=== PATIENT | female | born 1995 | race Caucasian/White ===

== ENCOUNTER 2022-06-26 11:09 | Outpatient (CLI) | payer OTHER, SELFPAY ==
--- NOTE | ~2022-06-26 | US_ITS ---
EXAMINATION: US OB follow up DATE: 06/26/2022 11:47 INDICATION: weight and position. Third trimester. TECHNIQUE: Real-time ultrasound of the pelvis was performed. COMPARISON: None. FINDINGS: There is a single living fetus in vertex presentation. The placenta is anterior. heart rate is 134 beats per minute (bpm). The amniotic fluid index is 13.1 cm, which is normal. The following biometric data were obtained: Biparietal diameter (BPD): 8.3 cm; head circumference (HC): 30.5 cm; abdominal circumference (AC): 32 .1 cm; femur length (FL): 7.0 cm. These measurements are concordant. Estimated weight is 2675 g +/- 401 g, which correlates with the 41st percentile when 07/26/22 is used as estimated date of delivery. As single measurements, these parameters are each equal to the following estimated gestational ages: BPD: 33 weeks 3 days. HC: 34 weeks 0 days. AC: 36 weeks 0 days. FL: 35 weeks 5 days. estimated gestational age based solely on measurements from this exam is 34 weeks 6 days +/- 2 weeks 3 days. IMPRESSION: 1. Single living fetus in vertex presentation. 2. Estimated weight is 2675 g +/- 401 g, which correlates with the 41st percentile when 07/26/22 is used as estimated date of delivery. Reviewed, dictated and finalized at location A. R DESIGN ENGINEER
== END 2022-06-26 11:10 | disposition home or self-care (01) ==
LOC: ANHIMG 11:18
PROVIDERS: Visit Provider Obstetrics & Gynecology
DX: Z34.93 Encounter for supervision of normal pregnancy, unspecified, third trimester (principal); Z3A.34 34 weeks gestation of pregnancy
CPT/HCPCS: 76816

== ENCOUNTER 2022-07-17 02:44 | Inpatient (IN) | payer OTHER, SELFPAY ==
[2022-07-17] VITALS (65 sets, daily range): BP systolic 75–149; BP diastolic 53–107; PULSE 55–118; RESP 16; TEMP 36.3–37; O2SAT 98–100
--- NOTE | 2022-07-17 05:59 | PM.IMHP ---
H&P: HPI History of Present Illness Date/Time: 07/17/22 05:59 Chief Complaint: rupture membranes 2018 last night Narrative: / 27-year-old 2 para presents at 3857 weeks gestation with rupture membranes has been uncomplicated. She had negative group B strep PMFSH Family History Family History Other Patient denies significant medical history Social History Social History Substance use: never Spiritual care concerns: No Meds Home Medications and Allergies Home Medications Medication Instructions Recorded Confirmed Type prenat.vits,tatiana,[id number]-[id number] 1 tablet PO DAILY 07/12/22 07/12/22 History valacyclovir 500 mg tablet 500 mg DAILY 07/12/22 07/12/22 History (Valtrex) Allergies Allergy/AdvReac Type Severity Reaction Status Date / Time No Known Allergies Allergy Verified 07/12/22 12:11 Exam Const: General: cooperative, healthy appearing, comfortable and well groomed Nutritional Appearance: average body habitus Orientation/consciousness: oriented to person, oriented to place and oriented to time HENMT: Head: normal to inspection Resp: Effort & Inspection: normal respiratory effort Cardio: Rate: regular rate Rhythm: regular rhythm Heart sounds: S1 normal heart sound present and S2 normal heart sound present GI: Inspection: normal to inspection ( gravid soft uterus) Auscultation: normal bowel sounds : External Female Exam: normal external appearance Speculum Exam - Vagina: normal appearance of the vagina Speculum Exam - Cervix: normal appearance of the cervix ( cervix 4Cm. 100%/ -1 small clear fluid. FHTs reassuring) Assessment and Plan Assessment and plan (1) Term : Code(s): Z34.90 - Encounter for supervision of normal , unspecified, unspecified trimester Status: Acute Plan spontaneous vaginal delivery is expected. She has an epidural candidate
[2022-07-17] MEDS: LACTATED RINGERS 1,000 ML 125 ML IV CONT ×2 (06:47→07:49)
[2022-07-17 06:49] LABS: Basophils Absolute Auto 0.1 K/mm3 (0.0-0.1); Basophils Percent Auto 0.5 % (0.2-1.2); Eosinophils Absolute Auto 0.1 K/mm3 (0-0.3); Eosinophils Percent Auto 0.7 % (0-4.4); Hematocrit 37.9 % (37.0-47.0); Hemoglobin 12.8 g/dL (12.0-15.0); Immature Granulocyte Absolute 0.25 K/mm3 (0.00-0.031); Immature Granulocyte Percent A 2.3 % (0-0.5); Lymphocytes Percent Auto 16.7 % (18.3-44.2); Mean Corpuscular HGB Conc 33.8 g/dl (32-36); Mean Corpuscular Volume 94.8 fl (80-100); Mean Platelet Volume 11.1 fl (7.4-10.4); Monocytes Absolute Auto 0.8 K/mm3 (0.1-0.6); Monocytes Percent Auto 7.8 % (2.6-8.5); Neutrophils Absolute Auto 7.8 K/mm3 (1.3-6.7); Platelet Count Result 180 k/mm3 (150-375); Red Cell Distribution Width 12.7 % (11.5-14.5); White Blood Count 10.8 K/mm3 (4.5-10.0)
--- NOTE | 2022-07-17 06:49 | LDADM ---
This patient, Cristy Vance, was admitted to Labor/Delivery/Recovery 102 on 07/17/22 at 02:44. Plans for labor, pain management and were discussed with patient. Patient/family oriented to hospital policies and general routines including ID bracelet, bed and alarms, visiting hours, pain management, procedures, bathroom and other care routines, personal items, smoking policy, room service/diet and guest tray routines, security routines, and visiting hours. Patient/Family are encouraged to report perceived risks to care and to ask questions if they do not understand what they are told or what they should do. See OBIX for further documentation.
[2022-07-17] MEDS: OXYTOCIN 30 UNITS/NS 500 ML 30 UNITS/500 ML BAG IV CONT (07:16)
--- NOTE | 2022-07-17 08:06 | WPDANESEPP ---
Anes - Eval Pre Procedure Procedure: labor epidural Date/Time: 07/17/22 08:06 Surgeon: agusto Preop Diagnosis: pain during labor Pre Op Diagnosis: Leaking Patient Data Age: 27 Gender: F Height: Weight: Last Vital Signs Pulse 65 07/17/22 08:01 BP 131/65 07/17/22 08:01 Pulse Ox 100 07/17/22 08:04 Allergies Allergy/AdvReac Type Severity Reaction Status Date / Time No Known Allergies Allergy Verified 07/12/22 12:11 Home Medications Medication Instructions Recorded Confirmed Type prenat.vits,tatiana,[id number]-[id number] 1 tablet PO DAILY 07/12/22 07/12/22 History valacyclovir 500 mg tablet 500 mg DAILY 07/12/22 07/12/22 History (Valtrex) Laboratory Tests 07/17/22 07/17/22 07/17/22 06:38 06:38 06:38 WBC 10.8 K/mm3 H K/mm3 (4.5-10.0) RBC 4.00 M/mm3 L M/mm3 (4.2-5.4) Hgb 12.8 g/dL g/dL (12.0-15.0) Hct 37.9 % % (37.0-47.0) MCV 94.8 fl fl (80-100) MCH 32.0 pg pg (26-34) MCHC 33.8 g/dl g/dl (32-36) RDW 12.7 % % (11.5-14.5) Plt Count 180 k/mm3 k/mm3 (150-375) MPV 11.1 fl H fl (7.4-10.4) Immature Gran % (Auto) 2.3 % H % (0-0.5) Neut % (Auto) 72.0 % % (45.5-73.1) Lymph % (Auto) 16.7 % L % (18.3-44.2) [place] % (Auto) 7.8 % % (2.6-8.5) Eos % (Auto) 0.7 % % (0-4.4) Baso % (Auto) 0.5 % % (0.2-1.2) Lymph # (Auto) 1.80 K/mm3 K/mm3 (0.9-3.2) [place] # (Auto) 0.8 K/mm3 H K/mm3 (0.1-0.6) Eos # (Auto) 0.1 K/mm3 K/mm3 (0-0.3) Baso # (Auto) 0.1 K/mm3 K/mm3 (0.0-0.1) Abs Immat Gran (auto) 0.25 K/mm3 H K/mm3 (0.00-0.031) Absolute Neuts (auto) 7.8 K/mm3 H K/mm3 (1.3-6.7) Absolute Nucleated RBC 0.0 K/mm3 K/mm3 (0.0-0.012) Nucleated RBC % 0.0 % % (0.0-0.2) RPR Pending Blood Type O Positive Antibody Screen Negative Patient hx anesthesia problems: none Family hx anesthesia problems: none Results Review: All pre-operative results and documents have been reviewed as part of the pre-operative evaluation. [facility] Family History Family History Other Patient denies significant medical history Social History Social History Smoking status: Never smoker Second hand tobacco smoke exposure: No Substance use: never Lack of Transportation: No Lack of Food: Never True Current Housing: I Have Housing Concerned About Future Housing: No Difficulty Paying Gas/Electric Bills: No Difficulty Paying for Meds: No Currently Unemployed: No Education: Bachelor's Degree Difficulty w/ Childcare or Family Care: No Spiritual care concerns: No Exam Day of Procedure 07/17/22 08:06
--- NOTE | 2022-07-17 09:00 | PM.OBPRVD ---
OB - Delivery Note Procedure Delivery date: 07/17/22 Induction method: None Delivery monitor: External FHT and External Uterine Route of delivery: Episiotomy description: None Laceration Description: None Specimen: No Quantitative Blood Loss (ml): 60 Anesthesia type: Epidural Disposition: Floor [place] Baby Date of : 07/17/22 Time of : 08:50 Weeks of gestation at delivery: 38 gender: Female presentation: vertex position: Right Occiput Anterior Placenta delivery description: Spontaneous Cord Vessel Description: 3 Vessels and Delayed Cord Clamping score one minute: 9 score five minutes: 9
[2022-07-17] MEDS: OXYTOCIN 30 UNITS/NS 500 ML 30 UNITS/500 ML BAG 125 UNITS IV CONT (09:31)
--- NOTE | 2022-07-17 12:25 | PC.NURSE ---
Patient transferred to post room #280 via wheelchair. Support person present. Oriented to unit, room, information board, rooming in, admission packet and security measures. Patient verbalizes understanding.
[2022-07-17 13:28] LABS: Rapid Plasma Reagin Non-Reactive (NonReactive)
--- NOTE | 2022-07-17 15:52 | PC.NURSE ---
[id number] Introductions were made, then consulted with patient to assess needs related to . Lacto-0 Mother led the conversation with her?plans to feed?her infant, the?experience so far and lack of success with her first child . Resources provided for inpatient and outpatient services with the feeding sheet, mom/baby guide, business card and name written on the white board. Mother voiced understanding of information and consents to reviewing positioning, effective latch, supporting breast with the sandwich hold, swallowing, no pain, how to detach, protecting nipples and the milk supply. Mother has visitors present and declines assistance at this time. Reported to the primary RN.
[2022-07-17] MEDS: IBUPROFEN 600 MG TABLET PO (19:06)
[2022-07-18] MEDS: IBUPROFEN 600 MG TABLET PO ×3 (00:28→15:30)
--- NOTE | 2022-07-18 05:38 | P.DS_ITS ---
DS: Admitting Diagnosis Discharge Date Admitting Diagnosis term DS: Discharge Diagnosis Discharge Diagnosis (1) Term : Code(s): Z34.90 - Encounter for supervision of normal , unspecified, unspecified trimester Status: Acute DS: Summary Hospital Course Reason for hospitalization: patient was admitted with spontaneous rupture membranes at term Hospital Course: Cristy underwent a spontaneous vaginal delivery which was unremarkable. Her hospital course was unremarkable as well. She remained afebrile. She was , eating regular diet, voiding without difficulty, ambulating, and generally without complaints. She did note she had some mild depression past was given prescription for Zoloft 50mg daily Time Spent with Patient Time attestation: Total time spent providing and/or coordinating discharge services: Exam Const: General: cooperative, healthy appearing, comfortable and well groomed Nutritional Appearance: average body habitus Orientation/consciousness: oriented to person, oriented to place and oriented to time HENMT: Head: normal to inspection Resp: Effort & Inspection: normal respiratory effort Cardio: Rate: regular rate Rhythm: regular rhythm Heart sounds: S1 normal heart sound present and S2 normal heart sound present GI: Inspection: normal to inspection ( fundus firm below the umbilicus) DS: Data Data Completed and Pending Labs on day of discharge: Labs from last 24 hours 07/17/22 07/17/22 07/17/22 06:38 06:38 06:38 WBC 10.8 H RBC 4.00 L Hgb 12.8 Hct 37.9 MCV 94.8 MCH 32.0 MCHC 33.8 RDW 12.7 Plt Count 180 MPV 11.1 H Immature Gran % (Auto) 2.3 H Neut % (Auto) 72.0 Lymph % (Auto) 16.7 L [place] % (Auto) 7.8 Eos % (Auto) 0.7 Baso % (Auto) 0.5 Lymph # (Auto) 1.80 [place] # (Auto) 0.8 H Eos # (Auto) 0.1 Baso # (Auto) 0.1 Abs Immat Gran (auto) 0.25 H Absolute Neuts (auto) 7.8 H Absolute Nucleated RBC 0.0 Nucleated RBC % 0.0 RPR Non-reactive Blood Type O Positive Antibody Screen Negative Discharge Plan Discharge Attending physician on discharge: John Mae Discharging Clinician: John Mae Patient Disposition: Home, Self-Care Activity: may shower, no straining and pelvic rest Diet: heart healthy Wound Care Instructions: follow printed instructions Patient Instructions: Antibiotic Form Stand Alone Forms: General Discharge Information Follow-up/Referrals: John Mae MD [Physician] - Discharge Medications: New sertraline 50 mg tablet 50 mg PO DAILY Qty: 90 0RF Continued valacyclovir [Valtrex] 500 mg Tablet 500 mg DAILY #2 Tablet 1 tablet PO DAILY Date of admission: 07/17/22 02:44 Primary Care Provider: PHYSICIAN,CONCESSION CASHIER Admitting Provider: John Mae Attending physician on admission: John Mae Condition: Stable
--- NOTE | 2022-07-18 05:44 | P.PNOB_ITS ---
OB - PN: Subj Subjective Date/time seen: 07/18/22 05:44 Patient comments: no complaints and pain well controlled baby status: doing well and nursing well OB - PN: Obj Data Labs 07/17/22 06:38 Labs: Laboratory Results - last 24 hr 07/17/22 07/17/22 07/17/22 06:38 06:38 06:38 WBC 10.8 H RBC 4.00 L Hgb 12.8 Hct 37.9 MCV 94.8 MCH 32.0 MCHC 33.8 RDW 12.7 Plt Count 180 MPV 11.1 H Immature Gran % (Auto) 2.3 H Neut % (Auto) 72.0 Lymph % (Auto) 16.7 L [place] % (Auto) 7.8 Eos % (Auto) 0.7 Baso % (Auto) 0.5 Lymph # (Auto) 1.80 [place] # (Auto) 0.8 H Eos # (Auto) 0.1 Baso # (Auto) 0.1 Abs Immat Gran (auto) 0.25 H Absolute Neuts (auto) 7.8 H Absolute Nucleated RBC 0.0 Nucleated RBC % 0.0 RPR Non-reactive Blood Type O Positive Antibody Screen Negative OB - PN A/P Plan day: 1 Plan: routine care Time Spent With Patient Time: Total time spent is greater than 50% in coordination of care (as documented) at patient's floor/unit and/or counseling patient: Time with patient: less than 15 minutes Exam 2 Const: General: cooperative, healthy appearing, comfortable and well groomed Nutritional Appearance: average body habitus Orientation/consciousness: oriented to person, oriented to place and oriented to time HENMT: Head: normal to inspection Resp: Effort & Inspection: normal respiratory effort Cardio: Rate: regular rate Rhythm: regular rhythm Heart sounds: S1 normal heart sound present and S2 normal heart sound present GI: Inspection: normal to inspection ( fundus firm below the umbilicus)
[2022-07-18 06:20] LABS: Hematocrit 37.2 % (37.0-47.0); Hemoglobin 12.2 g/dL (12.0-15.0)
[2022-07-18 07:15] VITALS: BP 122/73; PULSE 69; RESP 14; TEMP 36.3; O2SAT 100
[2022-07-18] MEDS: DOCUSATE SODIUM 100 MG CAPSULE PO (08:48)
[2022-07-18] MEDS: valACYclovir HCL 500 MG TABLET PO (08:48)
[2022-07-18] MEDS: MULTIVIT/MIN/PREN/FOL AC/IRON TABLET 1 TAB PO (08:48)
--- NOTE | 2022-07-18 09:48 | PC.NURSE ---
On 07/18/22, the student, Ayla Encarnacion, provided care and completed [facility] documentation on this patient. I have reviewed the student's documentation and agree with the findings.
--- NOTE | 2022-07-18 10:24 | WPDANLDPN2 ---
Anes-Prog Note L&D Date/Time: 07/18/22 10:24 Comfortable throughout: labor and delivery Neuraxial method: epidural Epidural/Spinal procedure site: clean & non-tender Neuro status: Neuro function grossly intact. Cardiovascular status: normal Respiratory status: normal Airway patency: baseline Mental status: baseline Post-Op hydration status: normal Vital Signs: Last Vital Signs Temp 36.3 C L 07/18/22 07:15 Pulse 69 07/18/22 07:15 Resp 14 07/18/22 07:15 BP 122/73 07/18/22 07:15 Pulse Ox 100 07/18/22 07:15 O2 Del Method Room Air 07/18/22 07:40 Pain score (VAS): 2/10 I/O: Intake & Output 07/17/22 07/18/22 07/18/22 23:59 07:59 15:59 Intake Total 500 Balance 500 Post-procedural complaints: none Patient feedback: Patient satisfied with anesthetic care.
--- NOTE | 2022-07-18 10:47 | PC.NURSE ---
[id number] Purposely rounded to assess needs. Reviewed tips and techniques to improve optimal latching. Mother states some feedings are better than others and she sees swallowing. Reviewed the pie demonstration as infant is meeting the criteria for adequate output. It had been close to 3 hours and was demonstrating quiet activity so mother unwrapped to attempt to breastfeed. Infant was latched to the left breast well. RN suggested turning 's body to improve alignment of the ear, shoulder and hip moving closer for a deeper latch to improve intake. Mother voiced understanding of the education and was encouraged to call for assistance if the infant doesn't wake to breastfeed from the start of a feeding to the start of a feeding, unwrapping to assess feeding cues or if the latch is painful. Reported to the Primary RN.
[2022-07-18 19:10] VITALS: BP 112/77; PULSE 72; RESP 18; TEMP 36.8
[2022-07-19] MEDS: IBUPROFEN 600 MG TABLET PO (03:30)
--- NOTE | 2022-07-19 06:05 | PM.OBPNVD ---
OB - PN: Subj Subjective Date/time seen: 07/19/22 06:05 Patient comments: no complaints and pain well controlled baby status: doing well and nursing well OB - PN: Obj Data Labs 07/18/22 05:30 Labs: Laboratory Results - last 24 hr 07/18/22 05:30 Hgb 12.2 Hct 37.2 OB - PN A/P Plan Plan: routine care, discharge home and follow up 6 weeks Time Spent With Patient Time: Total time spent is greater than 50% in coordination of care (as documented) at patient's floor/unit and/or counseling patient: Time with patient: less than 15 minutes Exam Const: General: cooperative, healthy appearing, comfortable and well groomed Orientation/consciousness: oriented to person, oriented to place and oriented to time Resp: Effort & Inspection: normal respiratory effort Cardio: Rate: regular rate Rhythm: regular rhythm Heart sounds: S1 normal heart sound present and S2 normal heart sound present GI: Inspection: normal to inspection ( fundus firm below umbilicus) Auscultation: normal bowel sounds
[2022-07-19 07:50] VITALS: BP 118/76; PULSE 82; RESP 18; TEMP 36.7; O2SAT 98
[2022-07-19] MEDS: MULTIVIT/MIN/PREN/FOL AC/IRON TABLET 1 TAB PO (08:25)
[2022-07-19] MEDS: valACYclovir HCL 500 MG TABLET PO (08:25)
--- NOTE | 2022-07-19 15:58 | PC.NURSE ---
[id number] Purposefully rounded to assess needs. Mother is prepared to eat breakfast, then will call for the next feeding. [id number] Attempted several times with skin to skin, patting, shhhing , checking diaper and spoon feeding to get to settle and breastfeed. latches demonstrating non-nutritive sucking. Mother hand expresses colostrum and 1/2 tsp is fed to infant with finger feeding and with a spoon after stops crying. [id number] Mother pumps her breast to protect the milk supply and the plan is made to supplement infant 10-15 depending on how much milk is expressed related to demonstrating inconsolable behaviors. Mother pumped a total of 10mls and 5mls was paced fed to infant using a bottle nipple. After was relaxed and not as hungry, latched optimally to the right breast using the football positioning and effectively breastfed with good rocking motion, appropriate suck/swallows, and mother denies pain. Mother is more confident in her ability to independently latch infant optimally without discomfort. Reminded parents to use good handwashing technique to prevent infection. Mother is feeding appropriately for growth of infant and understands stimulating to eat if needed. has had appropriate feedings in the last 24 hours meets the outcomes for weight, output and jaundice at this time. Mother states she is confident to continue effectively breastfeed her at home, when to call for assistance and denies any additional assistance or education at this time after questions were discussed and answered. Reminded parents to watch infant for early feeding cues and breastfeed 8-12 times in 24 hours to prevent infant demonstrating late feeding cues. Reinforced understanding of milk production, transition of milk, signs of adequate intake, transition of stool, prevention/relief of engorgement, responsive watching for feeding cues, the different methods of stimulating infant to breastfeed 2-3 hours after the start of the last feeding, community resources, and when to call a provider using the resource of the mom and baby guide. Parents voiced understanding of the education shared.
[2022-07-20 10:29] VITALS: BP 131/83; PULSE 76; RESP 18; TEMP 36.2; O2SAT 99
== END 2022-07-19 12:31 | disposition home or self-care (01) | DRG 807 ==
LOC: ANHLDR 06:07 → ANHOB2 11:33
PROVIDERS: Admitting Provider Obstetrics & Gynecology; Visit Provider Obstetrics & Gynecology
DX: O62.3 Precipitate labor (principal); Z37.0 Single live birth; Z3A.38 38 weeks gestation of pregnancy; O69.81X0 Labor and delivery complicated by cord around neck, without compression, not applicable or unspecified
CPT/HCPCS: 36415; 84112; 85014; 85018; 85025; 86592; 86850; 86900; 86901; A9270; J2590; J2795; J7120

== ENCOUNTER 2022-09-09 08:03 | Emergency (ER) | payer OTHER, SELFPAY ==
[2022-09-09 08:08] VITALS: BP 121/72; PULSE 72; RESP 14; TEMP 36.1; O2SAT 100
[2022-09-09 08:16] VITALS: BP 121/72; PULSE 72; RESP 14; TEMP 36.1; O2SAT 100
--- NOTE | 2022-09-09 08:34 | ED.GENADULT ---
HPI - General Adult General Chief complaint: Upper Respiratory Infection Stated complaint: left side of throat Source: patient Mode of arrival: ambulatory Limitations: no limitations History of Present Illness HPI narrative: Patient presents for evaluation of sore throat for last 3 days. No fever, chills, nausea, vomiting, cough, shortness of breath. No recent sick contacts to her knowledge. She is not taking any medication to assist with her symptoms. She does not smoke. No additional complaints or concerns. Related Data Home Medications Medication Instructions Recorded Confirmed valacyclovir 500 mg tablet 500 mg DAILY 07/12/22 09/09/22 (Valtrex) Allergies Allergy/AdvReac Type Severity Reaction Status Date / Time No Known Allergies Allergy Verified 09/09/22 08:15 Review of Systems Review of Systems: CONSTITUTIONAL: Denies fever, chills, or sweats. EYES: Denies visual changes, redness, or discharge. ENT: Reports sore throat. Denies rhinorrhea, congestion, or otalgia. CARDIOVASCULAR: Denies chest pain, palpitations, or edema. RESPIRATORY: Denies cough or dyspnea. GASTROINTESTINAL: Denies abdominal pain, nausea, vomiting, or diarrhea. GENITOURINARY: Denies dysuria or hematuria. SKIN: Denies rash or itching. MUSCULOSKELETAL: Denies back pain, joint pain, or myalgia. NEUROLOGIC: Denies headache, numbness, dizziness, or weakness. PSYCHIATRIC: Denies anxiety or depression. [facility] Past Medical History Medical History No pertinent past medical history Surgical History Surgical History No pertinent past surgical history Family History Family History Mother Family history non-contributory Other Patient denies significant medical history Social History Social History Smoking status: Never smoker Second hand tobacco smoke exposure: No Substance use: never Lack of Transportation: No Lack of Food: Never True Current Housing: I Have Housing Concerned About Future Housing: No Difficulty Paying Gas/Electric Bills: No Difficulty Paying for Meds: No Currently Unemployed: No Education: Bachelor's Degree Difficulty w/ Childcare or Family Care: No Spiritual care concerns: No Exam Narrative: GENERAL: Well-appearing, well-nourished, and in no acute distress. HEAD: Normocephalic, atraumatic. EYES: PERRLA and EOMI. ENT: Nares clear, no rhinorrhea or epistaxis. Mucous membranes moist. Oropharynx without tonsillar hypertrophy exudate or other lesions. Bilateral TMs pearly garcia nonbulging NECK: Supple. No adenopathy or masses. No carotid bruits or JVD CHEST: Clear to auscultation. No respiratory distress. No wheezes rales or rhonchi HEART: Regular rate and rhythm. No murmur heard. Normal peripheral pulses. ABDOMEN: Soft, nontender, nondistended, normal active bowel sounds. EXTREMITIES: Normal range of motion. No edema. SKIN: Warm, dry, no rash. NEURO: No focal deficits. Alert and oriented x3. PSYCH: Normal mood and affect. Course Course Emergency Course: This is a 27-year-old female who presented for evaluation of sore throat. Rapid strep negative. Physical exam normal. Likely viral in origin. Tylenol for pain. Cepacol for symptom management. Follow up outpatient for further evaluation treatment go to the ER for difficulty breathing or swallowing. Patient in agreement with plan of care Level of Care: Express Care Visit Vital Signs Vital signs: Vital Signs Temperature 36.1 C L 09/09/22 08:08 Pulse Rate 72 09/09/22 08:08 Respiratory Rate 14 09/09/22 08:08 Blood Pressure 121/72 09/09/22 08:08 Pulse Oximetry 100 09/09/22 08:08 Oxygen Delivery Room Air 09/09/22 08:08 Temperature 36.1 C L 09/09/22 08
== END 2022-09-09 08:43 | disposition home or self-care (01) ==
PROVIDERS: Emergency Provider Nurse Practitioner
DX: J02.9 Acute pharyngitis, unspecified (principal)
CPT/HCPCS: 87081; 87880; 99213; G0463

== ENCOUNTER 2024-01-01 08:02 | Emergency (ER) | payer OTHER, SELFPAY ==
[2024-01-01 08:08] VITALS: BP 144/87; PULSE 89; RESP 20; TEMP 36.6; O2SAT 100
--- NOTE | 2024-01-01 08:17 | ED.URI ---
HPI - URI/Sore Throat General Chief Complaint: Upper Respiratory Infection Stated Complaint: Fever/Sore Throat/Ear Pain Time Seen by Provider: 01/01/24 08:29 Source: patient and RN notes reviewed Mode of arrival: ambulatory Limitations: no limitations History of Present Illness HPI Narrative: 28-year-old female presents concern for sore throat, fever, body aches for 2 days. She reports she has taken ibuprofen. She denies runny nose, stuffy nose cough MD elicited complaint: sore throat Related Data Home Medications Medication Instructions Recorded Confirmed valacyclovir 500 mg tablet 500 mg DAILY 07/12/22 09/09/22 (Valtrex) Allergies Allergy/AdvReac Type Severity Reaction Status Date / Time amoxicillin Allergy Mild Rash Verified 01/01/24 08:30 Review of Systems Review of Systems: CONSTITUTIONAL: Denies malaise, chills, sweats, or fever. EYES: Denies visual changes, redness, or discharge. ENT: Denies rhinorrhea, congestion, sinus pain, otalgia. Reports sore throat. CARDIOVASCULAR: Denies chest pain, palpitations, or edema. RESPIRATORY: Reports cough. Denies dyspnea. GASTROINTESTINAL: Denies abdominal pain, nausea, vomiting, diarrhea SKIN: Denies rash or itching. MUSCULOSKELETAL: Denies myalgia. NEUROLOGIC: Denies headache. All systems reviewed & are unremarkable except as noted in HPI and below PMFSH Past Medical History Medical History (Updated 01/01/24 @ 08:32 by Anai Mcneal NP) No pertinent past medical history Surgical History Surgical History No pertinent past surgical history Family History Family History Mother Family history non-contributory Other Patient denies significant medical history Social History Social History Smoking status: Never smoker Second hand tobacco smoke exposure: No Substance use: never Lack of Transportation: No Lack of Food: Never True Current Housing: I Have Housing Concerned About Future Housing: No Difficulty Paying Gas/Electric Bills: No Difficulty Paying for Meds: No Currently Unemployed: No Education: Bachelor's Degree Difficulty w/ Childcare or Family Care: No Spiritual care concerns: No Comments At time of signature, agree with nursing past medical, surgical, social and family history. There is no relevant family history pertinent to the presenting complaint Exam Narrative: GENERAL: Well-appearing, well-nourished, and in no acute distress. HEAD: Normocephalic EYES: PERRLA, conjunctivae clear ENT: Nares clear. Mucous membranes moist. TM pearly garcia with sharp light reflex bilaterally; no tragal tenderness. Oropharynx erythematous without lesions. Tonsils enlarged and without exudate, no drooling, no hoarseness, no trismus, uvula midline. NECK: Supple. No lymphadenopathy CHEST: Clear to auscultation, breath sounds equal. No wheezing, rhonchi, rales, or stridor. No respiratory distress, speaks in full sentences. HEART: Regular rate and rhythm. No murmur heard. SKIN: Warm, dry, no rash. NEURO: Alert and oriented x3. PSYCH: Normal mood and affect Course Course Emergency Course: Patient is aware of diagnosis, understands and agrees to treatment plan. Anticipatory guidance given. Patient agrees to follow-up as directed and is aware of reasons to seek care at the emergency department. Portions of this record may have been created with voice recognition software Level of Care: Express Care Visit Vital Signs Vital signs: Vital Signs Temperature 97.8 F 01/01/24 08:08 Pulse Rate 89 01/01/24 08:08 Respiratory Rate 20 01/01/24 08:08 Blood Pressure 144/87 H 01/01/24 08:08 Pulse Oximetry 100 01/01/24 08:08 Oxygen Delivery Room Air 01/01/24 08:08 Temperature 97.8 F 01/01/24 08:08 Pulse Rate 89 01/01/24 08:08
[2024-01-01 08:27] LABS: EDSTREPNEGPOS1 Positive (Negative)
== END 2024-01-01 08:40 | disposition home or self-care (01) ==
PROVIDERS: Emergency Provider Nurse Practitioner
DX: J02.0 Streptococcal pharyngitis (principal)
CPT/HCPCS: 87880; 99213; G0463

== ENCOUNTER 2024-07-22 10:42 | Outpatient (CLI) | payer OTHER, SELFPAY ==
[2024-07-22 11:04] LABS: Eosinophils Percent Auto 0.5 % (0-4.4); Hematocrit 37.4 % (37.0-47.0); Hemoglobin 12.3 g/dL (12.0-15.0); Immature Granulocyte Absolute 0.01 K/mm3 (0.00-0.031); Immature Granulocyte Percent A 0.3 % (0-0.5); Lymphocytes Absolute Auto 1.45 K/mm3 (0.9-3.2); Lymphocytes Percent Auto 38.4 % (18.3-44.2); Mean Corpuscular HGB Conc 32.9 g/dl (32-36); Mean Corpuscular Hemoglobin 30.6 pg (26-34); Mean Platelet Volume 9.8 fl (7.4-10.4); Monocytes Absolute Auto 0.3 K/mm3 (0.1-0.6); Monocytes Percent Auto 8.7 % (2.6-8.5); Neutrophils Percent Auto 52.1 % (45.5-73.1); Platelet Count Result 179 k/mm3 (150-375); Red Blood Count 4.02 M/mm3 (4.2-5.4); Red Cell Distribution Width 11.3 % (11.5-14.5); White Blood Count 3.8 K/mm3 (4.5-10.0)
[2024-07-22 11:21] LABS: Alanine Aminotransferase 21 U/L (6-35); Albumin Level 4.4 g/dL (3.5-5.1); Alkaline Phosphatase 56 U/L (38-126); Anion Gap 8 mmol/L (4-12); Aspartate Amino Transferase 29 U/L (14-36); Bilirubin,Total 0.4 mg/dL (0.2-1.3); Blood Urea Nitrogen 9 mg/dL (7-17); Calcium 8.7 mg/dL (8.4-10.2); Carbon Dioxide 28 mmol/L (22-30); Chloride 103 mmol/L (98-107); Cholesterol 136 mg/dL (0-200); Estimated Glomerular Filt Rate > 60; Glucose 87 mg/dL (65-110); Potassium 4.3 mmol/L (3.4-5.0); Sodium 139 mmol/L (137-145)
--- OUTSIDE RECORDS SUMMARY | 2024-07-22 12:14 | XMS_ITS | Clinical Summary ---
Author Organization [facility] Address [facility] [place] [address] Care Team Providers Care Communication Engineer Name Role Phone None, Provider MD Primary Care Provider Unavaila ble Encounters Date Type Department Care Team Description 06/29/2024 10:03 AM CDT - 06/29/2024 11:59 PM CDT Hospital Encounter [facility] [address], [place] [id number] Carl Hanks DO Discharge Disposition: Home or Self Care (Routine Discharge) 06/29/2024 Travel from Last 3 Months Social History Tobacco Use Types Packs/Day Years Used Date Smoking Tobacco: Never Assessed Comments Unknown Sex and Gender Information Value Date Recorded Sex Assigned at Female 06/29/2024 9:58 AM CDT Legal Sex Female 4:13 PM CDT Gender Identity Not on file Sexual Orientation Not on file Plan of Treatment Health Maintenance Due Date Last Done Comments Annual Physical 1998 Hepatitis C 2013 Hepatitis B Vaccines (1 of 3 - 19+ 3-dose series) 2014 Cervical Cancer Screening Pap Smear (Age 21 to 29) Every 3 Years 03/20/2021 03/20/2018 Cervical Cancer Screening 03/20/2021 COVID-19 Vaccine ( - 2023- season) 2023 01/16/2021, 12/26/2020 Influenza Adult (#1) 2024 02/08/2023, 01/14/2021, 02/13/2020, Additional history exists PHQ-2 (Physician [place]) 04/22/2024 DTaP, Tdap and Td Vaccines (3 - Td or Tdap) 06/06/2032 06/06/2022, 07/24/2019 HPV Vaccines Aged Out No longer eligi ble based on patient's age to complete this topic Meningococcal B Vaccine Aged Out No l onger eligible based on patient's age to complete this topic Meningococcal Vaccine Aged Out No arun emir eligible based on patient's age to complete this topic Pneumococcal Vaccine: Pediatrics (0 to 5 Years) and At-Risk Patients (6 to 64 Years) Aged Out No longer eligible based on patient's age to complete this topic RSV Immunizations Under 20 Months Aged Out No longer eligible based on patient's age to complete this topic Insurance [employer] [address] Care Teams Communication Engineer Relationship Specialty Start Date End Date None, Provider, MD PCP - General UNKNOWN PHYSICIAN SPECIALTY 06/29/24
--- OUTSIDE RECORDS SUMMARY | 2024-07-22 12:14 | XMS_ITS | Clinical Summary ---
Author Organization [facility] Address [facility] [place] [address] Phone Care Team Providers Care Paper Box Maker Name Role Phone Sussy Silva MD Unavailable Allergies Active Allergy Reactions Criticality Noted Date Comments Metronidazole Rash High 06/06/2018 Medications albuterol (PROAIR HFA) 108 (90 Base) MCG/ACT Aerosol Solution take 2 Puffs by inhalation every 6 hours as needed for Wheezing. 8.5 g 9 Active sertraline (ZOLOFT) 25 MG Tablet Take 25 mg by mouth daily. 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/2018 Immunizations Immunization Administration Dates Next Due Influenza Vaccine 01/24/2015 Influenza Vaccine greater than 3 yrs 01/27/2018, 02/10/2009 Influenza Vaccine, Quadrivalent, PF 02/13/2020,1 ,01/03/2016 Influenza, Seasonal, Injectable, Undefined 01/30 TDAP Vaccine 07/24/2019,07/24/2019 Family History Medical History Relation Name Comments Alcohol Abuse Brother 1 Drug Abuse Brother 1 No Known Problems Brother 2 Diabetes Father Hypertension Father Thyroid Disease Father Depression Mother Other-comment Mother Pre-cancer chapito l were found Colonoscopy No Known Problems Sister 1 Anxiety disorder Sister 2 Depression Sister 2 Miscarriage Sister 2 1 miscarriage Relation Name Status Comments Brother 1 Alive Brother 2 Alive Father Alive Mother Alive Sister 1 Alive Sister 2 Alive Social History Tobacco Use Types Packs/Day Years Used Date Smoking Tobacco: Never Smokeless Tobacco: Never Tobacco Cessation:Counseling Given: No Alcohol Use Standard Drinks/Week Comments Yes 0 (1 standard drink = 0.6 oz pur e alcohol) rare PHQ-2 Answer Date Recorded Total Score - Questions 1-9 1 08/2020 Sexually Active Control Partners Comments Yes Pill Male Comments No Sex and Gender Information Value Date Recorded Sex Assigned at Not on file Legal Sex Female 11:27 AM CDT Gender Identity Not on file Sexual Orientation Not on file 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 Not on file Not on file Last Filed Vital Signs Vital Sign Reading Time Taken Comments Blood Pressure 112/80 11/20/2020 8:36 AM CDT Pulse 89 11/20/2020 8:36 AM CDT Temperature 36.5 C (97.7 F) 11/20/2020 8:36 AM CDT Respiratory Rate 14 05/27/2020 7:48 AM WET PAN OPERATOR Oxygen Saturation 98% 11/20/2020 8:36 AM CDT Inhaled Oxygen Concentration - - Weight 76.2 kg (168 lb) 05/27/2020 7:48 AM WET PAN OPERATOR Height 167.6 cm (5' 6 ) 05/27/2020 7:48 AM WET PAN OPERATOR Body Mass Index 27.12 05/27/2020 7:48 AM WET PAN OPERATOR Plan of Treatment Health Maintenance Due Date Last Done Comments Hepatitis C Virus (HCV) Screening 1995 Hepatitis B Immunization (1 of 3 - 19+ 3-dose series) 2014 Influenza Immunization (#1) 12/22/202301/21, 01/22/2019, 01/27/2018, Additional history exists SARS-COV-2 Immunization (2023- season) 2023 01/16/2021, 12/26/2020 Td Immunization Every 10 Years (Adults With 1 Tdap) 07/23/2029 07/24/2019, 07/24/2019 Respiratory Syncytial Virus (RSV) Immunization (Adult) (1 - 1-dose 75+ series) 2070 Pap Smear Discontinued 03/20/2018 Meningococcal Immunization (ACWY) Aged Out No longer eligible based on patient's age to complete this topic Pneumococcal Immunization Combined Aged Out No longer eligible based on patient's age to complete this topic Rotavirus Immunization Aged Out No lo nger eligible based on patient's age to complete this topic Procedures Procedure Name Priority Date/Time Associated Diagnosis Comments PATHOLOGY CYTOLOGY SENIOR PRODUCT ENGINEER Routine 03/20/2018 from Last 3 Months or Most Recently Relevant to Health Maintenance Results * PATHOLOGY CYTOLOGY SENIOR PRODUCT ENGINEER (03/20/2018) Specimen of unknown material (specimen) us Not On File Provider PATHOLOGY/CYTOLOGY ORDERABL ES Final Result from Last 3 Months or Most Recently Relevant to Health Maintenance Insurance [employer] Care Teams Paper Box Maker Relationship Specialty Start Date End Date Sussy Silva MD [address] [place] [address] Consulting Physician Obstetrics & Gynecology 06/11/18
--- OUTSIDE RECORDS SUMMARY | 2024-07-22 12:14 | XMS_ITS | Encounter Summary ---
Author Organization [facility] Address [facility] [place] [address] Care Team Providers Care Refinery Process Engineer Name Role Phone Kevin Guo MD Primary Care Provider Unavailable None, Provider Primary Care Provider Unavaila ble Encounter Details Date Type Department Care Team (Late st Contact Info) Description 02/23/2017 [place] [address] Kevin Guo MD Social History Tobacco Use Types Packs/Day Years Used Date Smoking Tobacco: Never Assessed Comments Unknown Sex and Gender Information Value Date Recorded Sex Assigned at Female 06/29/2024 9:58 AM CDT Legal Sex Female 4:13 PM CDT Gender Identity Not on file Sexual Orientation Not on file documented as of this encounter Plan of Treatment Not on file documented as of this encounter Visit Diagnoses Not on filedocumented in this encounter Care Teams Refinery Process Engineer Relationship Specialty Start Date End Date Kevin Guo MD PCP - General 02/06/15 07/03/17 None, ProviderMD PCP - General UNKNOWN PHYSICIAN SPECIALTY 06/29/24 documented as of this encounter
--- OUTSIDE RECORDS SUMMARY | 2024-07-22 12:15 | XMS_ITS | Clinical Summary ---
Author Organization [facility] [address] Address [address] [place] [address] Phone Care Team Providers Care Photographer'S Model Name Role Phone Maria AntoniaRomaine chavez Tania BROOKS Primary Care Provider [phone] Allergies Active Allergy Reactions Criticality Noted Date Comments Amoxicillin Rash Medium 07/14/2024 Medications valACYclovir (VALTREX) 500 mg tabletIndications :Genital herpes simplex, unspecified site Take 1 tablet (500 mg total) by mouth daily 30 tablet 2 07/15/19 25 Active albuterol HFA (PROAIR HFA) 90 mcg/actuation inhaler Inhale 2 puffs every 6 (six) hours as needed 06/11/19 19 025 Discontinued norethindrone (Liana) 0.35 mg tabletIndications : Contraception Take 1 tablet (0.35 mg total) by mouth daily 28 tablet 14 11/02/19 20 025 Discontinued sertraline (ZOLOFT) 25 mg tabletIndications : depression Take 1 tablet (25 mg total) by mouth daily 90 tablet 2 05/13/19 21 025 Discontinued valACYclovir (VALTREX) 500 mg tabletIndications :Genital herpes simplex, unspecified site Take 1 tablet by mouth once daily 30 tablet 2 10/05/19 22 025 Discontinued(Re order) Active Problems Problem Noted Date Diagnosed Date Routine physical examination 07/14/2024 Assessment & Plan (07/14/2024 12:48 PM CDT): IMMUNIZATIONS WERE REVIEWED EYE EXAM AND DENTAL UPTODATE SKIN ASSESSMENT WITH NO SUSPICIOUS LESIONS LABS WERE ORDERED PPX WITH VALTREX FOR HERPES GENTIALIS CONTINUE 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 Vulvar lesion 04/29/2019 11/25/2019 Overview (04/29/2019): 2 episodes in - Small bump that became painful and resolved spontaneously. Denies h/o genital herpes. If unable to reassess later in , recommend prophylactic valtrex at 36 weeks as a precaution. ASCUS with positive high risk HPV cervical 03/16/2019 12/01/2019 Overview (03/16/2019): H/o LSIL in 2017 and ASCUS, HPV+ in 2018. Plan for colposcopy (SHARAN 10/11/19). Encounters Date Type Department Care Team Description 07/14/2024 11:00 AM CDT Office Visit [facility] [address] [place] [phone] Romaine Em MD Preventative health care (Primary Dx); Genital herpes simplex, unspecified site; Routine physical examination from Last 3 Months Immunizations Immunization Administration Dates Next Due Influenza, Quadrivalent, Spl it, Preservative Free, Intramuscular 02/13/2020,01/22/2019,01/03/2016 Influenza, Trivalent, IM (MDV) 01/27/2018,2008 Influenza, Trivalent, Preser vative Free, Intramuscular 01/24/2015 Influenza, Unspecified 07/14/2024(Deferr ed: Patient Refused),01/20/2023,01/30/2017 Tdap 07/24/2019 Medical History Medical History Date Comments Abnormal Pap smear of cervix 2016 - LSIL. 2017 and 2019 - ASCUS, HPV positive. colposcopy 2019 - ANNIE 1. Chlamydia 2016 Family History Medical History Relation Name Comments Diabetes Father Hyperlipidemia Father Hypertension Father Hypothyroidism Father Esophageal cancer Mother's Brother Lung cancer Paternal Grandmother Gestational hypertension Sister Relation Name Status Comments Father Mother's Brother Paternal Grandmother Sister Social History Tobacco Use Types Packs/Day Years Used Date Smoking Tobacco: Never Smokeless Tobacco: Never Tobacco Cessation:Counseling Given: Not Answered Alcohol Use Standard Drinks/Week Comments Yes 2 (1 standard drink = 0.6 oz pur e alcohol) 1-3 DAY WEEK PHQ-2 Answer Date Recorded PHQ-2 Total Score (If total score is 3 or more points, staff should administer the PHQ-9) 0 07/14/2024 [place] Depression Scale Answer Date Recorded [place] Depression Scale Total 12 11/02/2019 The thought of harming myself has occurred to me . 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 . Last Filed Vital Signs Vital Sign Reading Time Taken Comments Blood Pressure 100/62 07/14/2024 10:55 AM CDT Pulse 71 07/14/2024 10:55 AM CDT Temperature 36.9 C (98.4 F) 07/14/2024 10:55 AM CDT Respiratory Rate 16 07/14/2024 10:55 AM CDT Oxygen Saturation 99% 07/14/2024 10:55 AM CDT Inhaled Oxygen Concentration - - Weight 75.6 kg (166 lb 9.6 oz) 07/14/2024 10:55 AM CDT Height 167.6 cm (5' 6 ) 07/14/2024 10:55 AM CDT Body Mass Index 26.89 07/14/2024 10:55 AM CDT Plan of Treatment Health Maintenance Due Date Last Done Comments Varicella Vaccines (1 of 2 - 13+ 2-dose series) 2008 Hepatitis B Screening 2013 Cervical Cancer Screening 03/20/2019 03/20/2018 Regular Well Visit/Exam 18-64 03/20/2019 03/20/2018 Influenza Vaccine (#1) 2024 3, 02/13/2020, 01/22/2019, Additional history exists Postponed from 12/22/2023 (Patient declined, but will receive in the future) Depression Screening 07/14/2025 07/14/2024, 11/02/19 20 DTaP/Tdap/Td Vaccine (2 - Td or Tdap) 07/23/2029 07/24/2019 Hepatitis C Screening Completed 03/04/2019 HPV Vaccines Aged Out No longer eligi ble based on patient's age to complete this topic Pneumococcal vaccine <65 Aged Out No longer eligible based on patient's age to complete this topic Procedures Procedure Name Priority Date/Time Associated Diagnosis Comments HEPATITIS C ANTIBODY Routine 03/04/2019 3:33 PM CURRICULUM DEVELOPMENT MANAGER THINPREP TIS PAP REFLEX HPV MRNA E6/E7, CHLAMYDIA/N.GONORRH OEAE Routine 03/20/2018 1:00 PM CURRICULUM DEVELOPMENT MANAGER Routine cervical smear Screening examination for venereal disease from Last 3 Months or Most Recently Relevant to Health Maintenance Results * Hepatitis C antibody (03/04/2019 3:33 PM CURRICULUM DEVELOPMENT MANAGER) Hep C Ab Negative Negative T[facility]OR Blood specimen (specimen) 03/04/2019 3:33 PM CURRICULUM DEVELOPMENT MANAGER 03/04/2019 8:37 PM CURRICULUM DEVELOPMENT MANAGER Sussy Silva MD LAB MICROBIOLOGY - NERAL ORDERABLES Final Result [facility] [address] [address] Department [place] [address] * (ABNORMAL) THINPREP TIS PAP REFLEX HPV mRNA E6/E7, CHLAMYDIA/N.GONORRHOEAE (03/20/2018 1:00 PM CURRICULUM DEVELOPMENT MANAGER) Report status CANCELED [facility] - Comment:Result canceled by t leslie ancillary CLINICAL INFORMATION: None given [facility] [place] LMP NONE GIVEN [facility] Previous Pap NONE GIVEN [facility] Prev. Bx NONE GIVEN [facility] [place] SOURCE: [facility] - Comment:Cervix, Endocervix Pap, specimen adequacy [facility] - Comment: Satisfactory for evaluation. Endocervical/transformation zone component present. Age and/or menstrual status not provided Pap, general categorization (A) [facility] [place] Comment:EPITHELIAL CELL ABNO RMALITY HPV interp (A) [facility] [place] Comment: Atypical Squamous Cells of Undetermined Significance (ASC-US) Infection: [facility] [place] Comment: Shift in vaginal mitchell suggestive of bacterial vaginosis. COMMENTS [facility] - Comment: This Pap test has been evaluated with computer assisted technology. Suggest clinical correlation and follow-up as clinically appropriate Lap Cutter [facility] - Comment: MACI HEALY(ASCP) CT screening location: [address] [place] [address] Review customs and immigration officer CANCELED [facility] - Comment:Result canceled by ebnoie nelson ancillary Pathologist [facility] - Comment: Leonard Walker M.D., Board Certified in Anatomic Pathology and Cytopathology. (electronic signature) Comment [facility] - Comment: EXPLANATORY NOTE: The Pap is a screening test for cervical cancer. It is not a diagnostic test and is subject to false negative and false positive results. It is most reliable when a satisfactory sample, regularly obtained, is submitted with relevant clinical findings and history, and when the Pap result is evaluated along with historic and current clinical information. C. trachomatis RNA NOT DETECTED NOT DETECTED [facility] [place] N. gonorrhoeae RNA NOT DETECTED NOT DETECTED [facility] [place] Comment [facility] [place] Comment: This test was performed using the [employer] COMBO2 Assay ([employer] The analytical performance characteristics of this assay, when used to test SurePath specimens have been determined by [facility]. Fluid 03/20/2018 1:00 PM CURRICULUM DEVELOPMENT MANAGER 03/24/2018 9:23 AM CURRICULUM DEVELOPMENT MANAGER Narrative Resulting Agency Comment Performing Organization Information: Site ID: [id number] Name: [facility] Address: [address] [address] Director: Cullen Neil D.O., MPH Site ID: [id number] Name: [facility] Address: [address] [place] [address] Director: Ema Shah Sussy Silva MD LAB PATHOLOGY ORDERAB LES Final Result [facility] [place] [facility] [place] from Last 3 Months or Most Recently Relevant to Health Maintenance Insurance [facility] CHOICE PLUS Member Subscriber Plan / Payer (Ef fective 2020-Present) Name:Cristy Vance Relation to Subscriber:Self Name:Cristy Vance Payer ID:[id number] ([facility]) Type:[facility] HMO/PPO Address: [facility] [address] [place] [address] [facility]/PPO Address: [address] [address] Advance Directives For more information, please contact: [phone] * Full Code (Latest Code Status on File) Date Activated Date Inactivated Comments 09/27/2019 5:16 PM 09/29/2019 12:30 AM * Full Code Date Activated Date Inactivated Comments 09/27/2019 7:38 AM 09/27/2019 5:16 PM Full CPR in ca se of cardiopulmonary arrest Care Teams Photographer'S Model Relationship Specialty Start Date End Date Romaine Em MD [address] [address] [place] [id number] PCP - General Internal Medicine 07/14/24
--- OUTSIDE RECORDS SUMMARY | 2024-07-22 12:15 | XMS_ITS | Referral Summary ---
Author Organization [facility] [address] Address [address] [place] [address] Phone Care Team Providers Care Digital Data Analyst Name Role Phone Romaine Em MD Primary Care Provider [phone] Encounters Date Type Department Care Team Description 07/14/2024 11:00 AM CDT Office Visit [facility] [address] [place] [address] Romaine Em MD Preventative health care (Primary Dx); Genital herpes simplex, unspecified site; Routine physical examination from Last 3 Months Allergies Active Allergy Reactions Criticality Noted Date [...] WITH VALTREX FOR HERPES GENTIALIS CONTINUE F/U LIGHT BULB TESTER Genital herpes 12/03/2019 depression 11/25/2019 Resolved Problems [...] in 2018. Plan for colposcopy (SHARAN 10/11/19). Immunizations Immunization Administration Dates Next Due Influenza, Quadrivalent, Spl it, Preservative Free, Intramuscular 02/13/2020,01/22/2019,01/03/2016 Influenza, Trivalent, IM (MDV) 01/27/2018,2008 Influenza, Trivalent, Preser vative Free, Intramuscular 01/24/2015 Influenza, Unspecified 07/14/2024(Deferr ed: Patient Refused),01/20/2023,01/30/2017 Tdap 07/24/2019 Social History Tobacco Use Types Packs/Day Years Used Date Smoking Tobacco: Never Smokeless Tobacco: Never Tobacco Cessation:Counseling Given: Not Answered Alcohol Use Standard Drinks/Week Comments Yes 2 (1 standard drink = 0.6 oz pur e alcohol) 1-3 DAY WEEK PHQ-2 Answer Date Recorded PHQ-2 Total Score (If total score is 3 or more points, staff should administer the PHQ-9) 0 07/14/2024 [place] Depression Scale Answer Date Recorded [place] Depression Scale Total 12 11/02/2019 The thought of harming myself has occurred to me . 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 Gender Identity Female 04/24/2019 5:05 PM SOIL SCIENCE TEACHER Sexual Orientation Straight 04/24/2019 5: 05 PM SOIL SCIENCE TEACHER Occupation Industry Job Start Date Job End [...] 07/14/2024 10:55 AM CDT Plan of Treatment Not on file Procedures Procedure Name Priority Date/Time Associated Diagnosis Comments HEPATITIS C ANTIBODY Routine 03/04/2019 3:33 PM SOIL SCIENCE TEACHER THINPREP TIS PAP REFLEX HPV MRNA E6/E7, CHLAMYDIA/N.GONORRH OEAE Routine 03/20/2018 1:00 PM SOIL SCIENCE TEACHER Routine cervical smear Screening examination for venereal disease from Last 3 Months or Most Recently Relevant to Health Maintenance Results * Hepatitis C antibody (03/04/2019 3:33 PM SOIL SCIENCE TEACHER) Hep C Ab Negative Negative [facility] Blood specimen (specimen) 03/04/2019 3:33 PM SOIL SCIENCE TEACHER 03/04/2019 8:37 PM SOIL SCIENCE TEACHER Sussy Silva MD LAB MICROBIOLOGY - NERAL ORDERABLES Final Result [facility] [address] Department [place] [address] * (ABNORMAL) THINPREP TIS PAP REFLEX HPV mRNA E6/E7, CHLAMYDIA/N.GONORRHOEAE (03/20/2018 1:00 PM SOIL SCIENCE TEACHER) Report status CANCELED [facility] - Comment:Result canceled by ebonie nelson ancillary CLINICAL INFORMATION: None given [facility] [place] LMP NONE GIVEN [facility] [place] Previous Pap NONE GIVEN [facility] [place] Prev. Bx NONE GIVEN [facility] [place] SOURCE: [facility] [place] Comment:Cervix, Endocervix Pap, specimen adequacy [facility] - Comment: Satisfactory for evaluation. Endocervical/transformation zone component present. Age and/or menstrual status not provided Pap, general categorization (A) [facility] [place] Comment:EPITHELIAL CELL ABNO RMALITY HPV interp (A) [facility] [place] Comment: Atypical Squamous Cells of Undetermined Significance (ASC-US) Infection: [facility] [place] Comment: Shift in vaginal mitchell suggestive of bacterial vaginosis. COMMENTS [facility] - Comment: This Pap test has been evaluated with computer assisted technology. Suggest clinical correlation and follow-up as clinically appropriate [facility] - Comment: [place], CT(ASCP) CT screening location: [place] [address] [place] [address] Review consultant technology CANCELED [facility] [place] Comment:Result canceled by ebonie nelson ancillary Pathologist [facility] - Comment: Leonard Walker M.D., Board Certified in Anatomic Pathology and Cytopathology. (electronic signature) Comment [facility] - Comment: EXPLANATORY NOTE: The Pap is a screening test for cervical cancer. It is not a diagnostic test and is subject to false negative and false positive results. It is most reliable when a satisfactory sample, regularly obtained, is submitted with relevant clinical findings and history, and when the Pap result is evaluated along with historic and current clinical information. Eddi trachomatis RNA NOT DETECTED NOT DETECTED [facility] [place] N. gonorrhoeae RNA NOT DETECTED NOT DETECTED [facility] [place] Comment [facility] [place] Comment: This test was performed using the APTIMA COMBO2 Assay ([employer] The analytical performance characteristics of this assay, when used to test SurePath specimens have been determined by [facility] 03/20/2018 1:00 PM SOIL SCIENCE TEACHER 03/24/2018 9:23 AM SOIL SCIENCE TEACHER Narrative Resulting Agency Comment Performing Organization Information: Site ID: [id number] Name: [facility] Address: [address] [address] Director: Cullen Neil D.O., MPH Site ID: [id number] [facility] Address[facility] [address] [address] Director: Ema Shah Sussy Silva MD LAB PATHOLOGY ORDERAB LES Final Result Performing Organization Address City/State/[facility] [[email or web address]] Co de Phone Number [place] [facility] [place] [facility] [place] [address] [place] from Last 3 Months or Most Recently Relevant to Health Maintenance Insurance [facility] CHOICE PLUS [facility] Advance Directives For more information, please contact: [phone] * Full Code (Latest Code Status on File) Date Activated Date Inactivated Comments 09/27/2019 5:16 PM 09/29/2019 12:30 AM * Full Code Date Activated Date Inactivated Comments 09/27/2019 7:38 AM 09/27/2019 5:16 PM Full CPR in ca se of cardiopulmonary arrest Care Teams Digital Data Analyst Relationship Specialty Start Date End Date Romaine Em MD [address] [place] [address] PCP - General Internal Medicine 07/14/24
--- OUTSIDE RECORDS SUMMARY | 2024-07-22 12:15 | XMS_ITS | Encounter Summary ---
Author Organization [facility] Address [address] [place] [address] Care Team Providers Care Claim Processing Specialist Name Role Phone Unavailable Primary Care Provider Unavailabl e Encounter Details Date Type Department Care Team (Late st Contact Info) Description 09/24/2019 Lab Requisition [facility] [address] [place] [address] Barak Michael MD Cough Social History Tobacco Use Types Packs/Day Years Used Date Smoking Tobacco: Never Assessed Sex and Gender Information Value Date Recorded Sex Assigned at Not on file Gender Identity Not on file Sexual Orientation Not on file documented as of this encounter Plan of Treatment Not on file documented as of this encounter Procedures Procedure Name Priority Date/Time Associated Diagnosis Comments SARS-COV-2 (COVID-19) IN HOUSE Routine 09/24/2019 11:00 AM CDT Cough documented in this encounter Results * SARS-COV-2 (COVID-19) IN HOUSE (09/24/2019 11:00 AM CDT) COVID-19 PCR Not detected Not detected, Invalid 09/25/2019 5:[address] [facility] Microbiology SPECIMEN FROM NASOPHARYNGEAL STRUCTURE / Unknown Collection / Unknown 09/24/2019 11:00 AM CDT 09/24/2019 10:[address] [facility] - 09/25/2019 5:11 AM CDT This nucleic acid amplification assay performance was validated by [facility]. This test has been authorized by the Food and Drug administration (FDA)under an Emergency Use Authorization (EUA). This test has been validated in accordance with the FDA's guidance document Policy for Diagnostic Testing in Laboratories Certified to perform High Complexity Testing under CLIA prior to Emergency Use Authorization for Coronavirus Disease-2019 during the Public Health Emergency issued on June 20, 2019. FDA independent review of this validation is pending. This test is only authorized for the duration of time the declaration that circumstances exist justifying the authorization of emergency use of in vitro diagnostic tests for detection of SARS-CoV-2 virus and/or diagnosis of COVID-19 infection under section 564(b)(1) of the Act, 21 U.S.C 360bbb-3 (b)(1), unless the authorization is terminated or revoked sooner. Barak Michael MD LAB - MICROBIOLOGY ORDERABLES [facility] [address] [place], [place] [address], [facility] [phone] documented in this encounter Visit Diagnoses Diagnosis Cough documented in this encounter Additional Health Concerns Infection Onset Date Last Indicated Resolved Time COVID-19 Under Investigation 09/24/2019 09/24/2019 09/25/2019 5:11 AM CDT documented as of this encounter
--- OUTSIDE RECORDS SUMMARY | 2024-07-22 12:15 | XMS_ITS | Clinical Summary ---
Author Organization [facility] Address [address] [place] [address] Care Team Providers Care Flask Handler Name Role Phone Unavailable Primary Care Provider Unavailabl e Source Comments [facility],non-owned Affiliates and Associated Physician Practices is amultiple site organization consisting of ambulatory clinics and hospital sitesin [place], [place], [place] and [place]. This disclosure is being madepursuant to the Care Everywhere program and may not contain all information available regarding this patient. Last updated 18.[facility] [employer] Social History Tobacco Use Types Packs/Day Years Used Date Smoking Tobacco: Never Assessed Sex and Gender Information Value Date Recorded Sex Assigned at Not on file Gender Identity Not on file Sexual Orientation Not on file Plan of Treatment Health Maintenance Due Date Last Done Comments PAP SMEAR 1995 HIV SCREENING 2010 HEPATITIS C SCREENING 06/08/2013 DTAP/TDAP/TD VACCINES (1 - Tdap) 2014 HEPATITIS B VACCINE (1 of 3 - 19+ 3-dose series) 2014 COVID-19 VACCINE (1 - 2023-2 5 season) 2023 INFLUENZA VACCINE (#1) 2023 DEPRESSION SCREENING 04/22/2024 ZOSTER VACCINE (1 of 2) 2045 HIB VACCINE Aged Out No longer eligi ble based on patient's age to complete this topic HPV VACCINE Aged Out No longer eligi ble based on patient's age to complete this topic MENINGOCOCCAL (Group B) VACC INE SHARED DECISION-MAKING Aged Out No longer eligibl e based on patient's age to complete this topic MENINGOCOCCAL GROUPS A/C/Y/W VACCINE Aged Out No longer eligible b ased on patient's age to complete this topic PNEUMOCOCCAL VACCINE Aged Out No long er eligible based on patient's age to complete this topic
== END 2024-07-22 10:43 | disposition home or self-care (01) ==
LOC: ANHLAB 10:45
PROVIDERS: Visit Provider Internal Medicine Infectious Disease
DX: Z00.00 Encounter for general adult medical examination without abnormal findings (principal)
CPT/HCPCS: 36415; 80053; 82465; 85025